=== PATIENT | female | born 1960 | race Caucasian/White ===

== ENCOUNTER 2019-07-31 15:43 | Emergency (ER) | payer OTHER ==
[2019-07-31] MEDS ORDERED: IPRATROPIUM/ALBUTEROL SULFATE 3 ML SOLUTION IH ONE ×2 (16:00→17:15)
[2019-07-31] MEDS ORDERED: METHYLPREDNISOLONE SOD SUCC 125MG/2ML VIAL ONE (16:13)
[2019-07-31 16:14] LABS: BASOPHILS % (AUTO) 0.4 % (0.0-5.0); EOSINOPHILS % (AUTO) 1.1 % (0.0-8.0); HEMATOCRIT 38.8 % (36-48); LYMPHOCYTES % (AUTO) 12.2 % (21.0-51.0); MEAN CORPUSCULAR HGB CONC 35.5 g/dL (32.0-36.0); MEAN CORPUSCULAR VOLUME 95.8 fL (79-99); MONOCYTES % (AUTO) 8.7 % (3.0-13.0); NEUTROPHILS % (AUTO) 77.6 % (40.0-77.0); PLATELET COUNT (AUTO) 208 K/uL (130-400); RED BLOOD CELL COUNT(AUTO) 4.05 MIL/uL (4.00-5.50); RED CELL DISTRIBUTION WIDTH 13.1 % (11.0-15.5); WHITE BLOOD COUNT (AUTO) 7.9 K/uL (4.8-10.8)
[2019-07-31 16:23] LABS: CREATININE 0.8 mg/dL (0.5-1.5); POTASSIUM 3.4 mmol/L (3.5-5.1)
[2019-07-31 16:28] LABS: ALBUMIN 3.3 g/dL (3.5-5.0); BILIRUBIN,TOTAL 0.6 mg/dL (0.2-1.0); TOTAL PROTEIN, SERUM 7.8 g/dL (6.0-8.3)
[2019-07-31 16:30] LABS: PARTIAL THROMBOPLASTIN TIME 24.8 SEC (26.3-35.5); PROTHROMBIN TIME 10.5 SEC (9.6-11.6)
[2019-07-31 16:37] LABS: RAPID GROUP A STREP NEGATIVE (NEGATIVE)
[2019-07-31 16:39] LABS: B-TYPE NATRIURETIC PEPTIDE 39 pg/mL (0-100)
[2019-07-31 17:02] LABS: APPEARANCE,URINE Clear (CLEAR); BILIRUBIN,URINE Negative (NEGATIVE); COLOR,URINE Yellow (YELLOW); GLUCOSE, URINE (UA) Negative (NEGATIVE); KETONES,URINE Negative (NEGATIVE); LEUKOCYTE ESTERASE ,URINE Negative (NEGATIVE); NITRATE,URINE Negative (NEGATIVE); OCCULT BLOOD,URINE Negative (NEGATIVE); PH,URINE 6.5 (5.0-8.0); PROTEIN,URINE Negative (NEGATIVE)
[2019-07-31] MEDS ORDERED: AZITHROMYCIN 250 MG TABLET PO ONE (18:57)
== END 2019-07-31 19:13 | disposition home or self-care (01) ==
LOC: EDH 15:43
DX: J44.1 Chronic obstructive pulmonary disease with (acute) exacerbation (principal); I10 Essential (primary) hypertension; Z72.0 Tobacco use
CPT/HCPCS: 36415; 71045; 80053; 81003; 82550; 83605; 83880; 84484; 85025; 85610; 85730; 87804 ×2; 87880; 93005; 94640 ×2; 96374; 99285; J2930